=== PATIENT | male | born 1985 | race Caucasian/White ===

== ENCOUNTER 2016-09-04 10:56 | Emergency (ER) | payer MEDICAID ==
[2016-09-04 11:15] VITALS: BP 150/107
[2016-09-04 11:50] LABS: Hemoglobin 16.8 gm/dL (13.5-18.0); Mean Cell Volume 92.7 fl (78-100); Mean Corpuscular Hemoglobin 30.5 pg (27-31); Mean Corpuscular Hgb Conc 32.9 g/dl (32-36); Mean Platelet Volume 8.9 fl (6.0-9.5); Neutrophil # 5.1 K/mm3 (1.3-6.0); Neutrophil % 72.3 % (42-75.0); Platelet Count 284 K/mm3 (150-450); Red Cell Distribution Width 12.6 % (11.5-14.0); White Blood Count 7.1 K/mm3 (4.0-10.5)
[2016-09-04 12:01] LABS: Albumin * 3.9 gm/dl (3.4-5.0); Anion Gap 11.3 mmol/L (6.8-13.8); BUN/Creatinine Ratio 11.9 (9.0-21.6); Bilirubin, Total 0.3 mg/dL (0.0-1.1); Ca. Corrected For Albumin 8.2 mg/dL (8.4-10.2); Calcium * 8.4 mg/dL (7.9-10.9); Carbon Dioxide 28.9 mmol/L (24-32.6); Potassium 4.2 mmol/L (3.4-4.6); Total Protein 7.9 gm/dL (6.2-8.2)
--- NOTE | 2016-09-04 12:53 | ERNOTE ---
Medical Problem HPI - Narrative Date of Service: 09/04/16 - General Chief Complaint: General Assessment Source: patient Exam Limitations: no limitations - Immun/Allergies/Home Medications Immunizations: IMMUNIZATION HX Immunizations Up to Date Yes Allergies/Adverse Reactions: Allergies Penicillins Allergy (Verified 09/04/16 11:15) Home Medications: HOME MEDICATIONS NK [No Home Medication] 09/04/16 [Last Taken Unknown] - History of Present History Narrative: 31-year-old male presenting to the emergency room for what he describes as a panic attack. States he has had several of these several times a day. Patient does admit to using methamphetamine. He states that these panic attacks and coming and going for about a year. States he has not been to his primary care physician in about 2 years. These attacks come and go with no trigger that he can recall. Patient denies to this provider that he has any feeling of being sick. states that he has tooth pain from time to time but is seeing his dentist tomorrow. Date (Duration): 09/04/16 Timing: resolved prior to arrival Review of Systems - Narrative Narrative: 31-year-old male presenting to the emergency room for what he describes as a panic attack. - Review of Systems Constitutional: Present: diaphoresis. Absent: recent illness, fever, chills, fatigue, malaise, weight loss EYE: Present: no symptoms reported ENT: Present: no symptoms reported Respiratory: Present: no symptoms reported. Absent: shortness of breath, cough Cardiology: Present: no symptoms reported. Absent: chest pain, palpitations, syncope Gastrointestinal/Abdominal: Present: no symptoms reported. Absent: nausea, vomiting, diarrhea Genitourinary: Present: no symptoms reported. Absent: frequency, pain, dysuria Musculoskeletal: Present: no symptoms reported Skin: Present: no symptoms reported Neurological: Present: anxiety. Absent: depressed, weakness, numbness Endocrine: Present: no symptoms reported Hematologic/Lymphatic: Present: no symptoms reported Psych: Present: no symptoms reported - Patient's Past Medical History Patient History - Medical: No pertinent hx Patient History - Cardiac/Respiratory: No pertinent hx Patient History - Cancer: No Hx of Cancer Patient History - Surgical Procedures: Other Patient History - Other: None - Social History Living Situations: home Psych History: No pertinent hx Drug Use: meth - Immunizations Immunizations Up to Date: Yes Physical Exam - Physical Exam General Appearance: Present: wd/wn, alert, no apparent distress Eye Exam: Normal inspection: bilateral Ears, Nose, Throat: Present: normal ENT inspection, other - dental caries present. gums pink and moist. Neck: Present: normal inspection Respiratory: Present: no respiratory distress, normal breath sounds, lungs clear Cardiovascular/Chest: Present: regular rate, rhythm, no murmur, normal peripheral pulses Gastrointestinal/Abdominal: Present: normal bowel sounds, nontender, soft Back Exam: Present: normal inspection, normal range of motion. Absent: decreased range of motion Extremity Exam: Present: normal inspection, normal range of motion Neurological Exam: Present: alert, oriented, normal mood/affect Skin Exam: Present: normal color Lymphatic Exam: Present: no adenopathy ED Progress - Results and Orders Patient's Lab Results:: I have reviewed the patient's lab results. Results and Orders: no acute process observed - Vital Signs Patient's Vital Signs:: I have reviewed the patient's vital signs. Vital Signs: Vital Signs 09/04/16 11:11 Temperature 36.4 C L Pulse Rate 98 Respiratory 16 Rate Blood Pressure 150/107 O2 Sat by Pulse 94 Oximetry - Progress/Reassessment Chief Complaint: General Assessment Progress:: Unchanged Plan - Plan Plan: 31-year-old male presenting to the emergency room with panic attack-like symptoms per patient. The patient did disclose that he does use methamphetamine , and has for the last year. The last time he did it was about a week ago. She states that during these episodes he gets anxious and sweaty. I Discussed at great length that the patient should stop doing methamphetamines. Patient also educated on the need to find a primary care provider the physician number lowest prior to discharge. She is to follow-up with his dentist tomorrow related to oral cavities. No sores were observed on oral assessment. Just dental caries. Patient educated about substance abuse and the need for him to have substance abuse treatment. Departure - Departure Clinical Impression: Anxiety attack Disposition: Home Follow Up Needed Condition: Stable Instructions: Panic Attacks, [id number] Additional Instructions: Follow-up with your primary care provider within the next few days. Make sure that you keep your dentist appointment that you have tomorrow and follow-up with your dentist. Return to the emergency rooms if symptoms persist or become intolerable. Try avoid the use of street drugs such as methamphetamine. I suggested that he seek substance abuse counseling.
--- OUTSIDE RECORDS SUMMARY | 2016-09-04 13:15 | XMS REPORT | Continuity of Care Document ---
:1985 Author Organization [email or web address] [address] Care Team Providers Name Role Phone Unavailable Primary Care Provider Unavailable Source Comments This disclosure is being made pursuant to the [employer] program and maynot contain all information available regarding this patient.[email or web address] Active Allergies and Adverse Reactions Not on File Current Medications Be aware that medications may not be up to date as of this document. Alwaysverify current medications with the patient. Not on file Active Problems Not on file Social History Tobacco Use Types Packs/Day Years Used Date Never Assessed Plan of Care Health Maintenance Due Date Last Done Comments Retired-Pertussis Vaccine Adult 2004 Retired-Tetanus Vaccine Adult 2004 Retired-INFLUENZA VACCINE 02/01/2015 Results from Last 3 Months Not on file
--- OUTSIDE RECORDS SUMMARY | 2016-09-04 13:15 | XMS REPORT | Continuity of Care Document ---
:1985 Author Organization [facility] ([facility]) Address [address] [place] [address] Phone [phone] Care Team Providers Name Role Phone Unavailable Primary Care Provider Unavailable Source Comments This disclosure is being made pursuant to the Care Everywhere program, applicable federal and state laws, and may not contain all informaitonavailable regarding this patient.[facility] ([facility]) Active Allergies and Adverse Reactions Allergen Noted Date Severity Reactions Comments Penicillins 06/07/2009 Urticaria (Hives) Current Medications Prescription Sig. Disp. Refills Start Date End Date Status ondansetron (ZOFRAN ODT) take 1 Tab by mouth 6 Tab 0 06/07/2009 Active 4 mg disintegrating every 6 hours as tablet needed. Indications: vomiting Active Problems Not on file Social History Tobacco Use Types Packs/Day Years Used Date Never Assessed Last Filed Vital Signs Vital Sign Reading Time Taken Blood Pressure 134/78 06/07/2009 8:02 AM [facility] Pulse 83 06/07/2009 8:02 AM [facility] Temperature 35.6 C (96.1 F) 06/07/2009 5:49 AM [facility] Respiratory Rate 17 06/07/2009 8:02 AM [facility] Height - - Weight - - Body Mass Index - - Oxygen Saturation 97% 06/07/2009 6:56 AM [facility] Plan of Care Health Maintenance Due Date Last Done Comments Hepatitis B Vaccine (1 of 3 - Primary Series) 1985 Tdap Vaccine 1996 Lipid Disorder Screening 08/20/2003 MMR Vaccine 08/20/2003 Td Vaccine 08/20/2003 Varicella Vaccine (1 of 2 - Adult - No Evidence of 08/20/2003 Immunity) Influenza Vaccine: Seasonal (#1) 01/02/2016 Results from Last 3 Months Not on file
== END 2016-09-04 13:14 | disposition home or self-care (01) ==
LOC: ER 10:56
DX: F41.1 Generalized anxiety disorder (principal)